=== PATIENT | female | born 1950 | race Hispanic/Latino ===

== ENCOUNTER 2019-04-02 18:35 | Observation (INO) | payer MEDICARE, OTHER ==
[~2019-04-02] VITALS: Ht 160 cm; Wt 82.8 kg
[~2019-04-02 18:35] MED LIST: AMIT25TA9 PO; CETI10TA57 PO; INS7030 SQ; METF-444 PO; SITA100T12 PO
[2019-04-02] MEDS ORDERED: SODIUM CHLORIDE 0.9% 500ML 500 ML IV ONE (19:41)
[2019-04-02 19:46] LABS: BASOPHILS % (AUTO) 0.5 % (0.0-5.0); EOSINOPHILS % (AUTO) 2.7 % (0.0-8.0); HEMATOCRIT 41.3 % (36-48); LYMPHOCYTES % (AUTO) 33.2 % (21.0-51.0); MEAN CORPUSCULAR HEMOGLOBIN 32.6 pg (27.0-33.0); MEAN CORPUSCULAR HGB CONC 35.1 g/dL (32.0-36.0); MEAN CORPUSCULAR VOLUME 93.1 fL (79-99); MONOCYTES % (AUTO) 5.5 % (3.0-13.0); NEUTROPHILS % (AUTO) 58.1 % (40.0-77.0); PLATELET COUNT (AUTO) 274 K/uL (130-400); RED BLOOD CELL COUNT(AUTO) 4.43 MIL/uL (4.00-5.50); RED CELL DISTRIBUTION WIDTH 13.1 % (11.0-15.5); WHITE BLOOD COUNT (AUTO) 11.2 K/uL (4.8-10.8)
[2019-04-02 19:58] LABS: APPEARANCE,URINE CLOUDY (CLEAR); BILIRUBIN,URINE SMALL (NEGATIVE); COLOR,URINE YELLOW (YELLOW); GLUCOSE, URINE (UA) >=1000 mg/dL (NEGATIVE); KETONES,URINE 15 mg/dL (NEGATIVE); LEUKOCYTE ESTERASE ,URINE TRACE (NEGATIVE); NITRATE,URINE POSITIVE (NEGATIVE); OCCULT BLOOD,URINE TRACE-INTACT (NEGATIVE); PH,URINE 5.5 (5.0-8.0); PROTEIN,URINE 100 mg/dL (NEGATIVE); UROBILINOGEN,URINE 0.2 mg/dL (0.2-1.0)
[2019-04-02 20:02] LABS: BACTERIA,URINE Many /HPF (None Seen); MUCUS,URINE Moderate LPF (None Seen)
[2019-04-02 20:10] LABS: B-TYPE NATRIURETIC PEPTIDE 71 pg/mL (0-100)
[2019-04-02 20:28] LABS: POTASSIUM 3.3 mmol/L (3.5-5.1)
[2019-04-02 20:33] LABS: ALBUMIN 3.8 g/dL (3.5-5.0); BILIRUBIN,DIRECT 0.1 mg/dL (0.0-0.3); BILIRUBIN,TOTAL 0.6 mg/dL (0.2-1.0); TOTAL PROTEIN, SERUM 7.9 g/dL (6.0-8.3)
[2019-04-02] MEDS ORDERED: ACETAMINOPHEN 325 MG TAB ONE (21:43)
[2019-04-02] MEDS ORDERED: ACETAMINOPHEN 325 MG TAB PO PRN (23:30)
[2019-04-02] MEDS ORDERED: SODIUM CHLORIDE 0.9% 1000ML 1,000 ML IV SCH (23:30)
[2019-04-02] MEDS ORDERED: KETOROLAC TROMETHAMINE 30MG/ML IV PRN (23:30)
[2019-04-02] MEDS ORDERED: POTASSIUM CHLORIDE 20MEQ/100ML 100 ML IV PRN (23:30)
[2019-04-02] MEDS ORDERED: LIDOCAINE HCL-MPF 1% 2ML VIAL IV PRN (23:30)
[2019-04-02] MEDS ORDERED: NITROGLYCERIN 0.4 MG SL TAB SL PRN (23:30)
[2019-04-02] MEDS ORDERED: CEFTRIAXONE SODIUM 1 GM ONE (23:51)
[2019-04-02] MEDS ORDERED: SODIUM CHLORIDE 0.9% 1000ML 1,000 ML IV ONE (23:52)
[2019-04-03 03:30] VITALS: BP 107/60
--- NOTE | 2019-04-03 03:55 | NUR ---
admission note admit to room 405 via w/c from er. patient awake, alert, ox3, no sob, no c/o pain at this time, teach patient plan of care and expected outcome, patient verbalizes understanding via teach back, call patterson at reach
[2019-04-03 05:26] LABS: BASOPHILS % (AUTO) 0.5 % (0.0-5.0); EOSINOPHILS % (AUTO) 4.2 % (0.0-8.0); HEMATOCRIT 35.5 % (36-48); LYMPHOCYTES % (AUTO) 48.3 % (21.0-51.0); MEAN CORPUSCULAR HEMOGLOBIN 32.3 pg (27.0-33.0); MEAN CORPUSCULAR HGB CONC 35.2 g/dL (32.0-36.0); MEAN CORPUSCULAR VOLUME 91.5 fL (79-99); MONOCYTES % (AUTO) 5.9 % (3.0-13.0); NEUTROPHILS % (AUTO) 41.1 % (40.0-77.0); NUCLEATED RED BLOOD CELLS 0.1 % (0.0-0.19); PLATELET COUNT (AUTO) 224 K/uL (130-400); RED BLOOD CELL COUNT(AUTO) 3.88 MIL/uL (4.00-5.50); RED CELL DISTRIBUTION WIDTH 13.2 % (11.0-15.5); WHITE BLOOD COUNT (AUTO) 8.7 K/uL (4.8-10.8)
[2019-04-03 05:41] LABS: ALBUMIN 2.9 g/dL (3.5-5.0); BILIRUBIN,TOTAL 0.4 mg/dL (0.2-1.0); CREATININE 0.7 mg/dL (0.5-1.5); MAGNESIUM 0.8 mg/dL (1.80-2.40); POTASSIUM 3.4 mmol/L (3.5-5.1); TOTAL PROTEIN, SERUM 6.3 g/dL (6.0-8.3)
[2019-04-03] MEDS ORDERED: INSULIN HUMULIN R 100 UNIT/ML 3ML SQ SCH (07:30)
[2019-04-03 07:55] VITALS: BP 104/50
[2019-04-03] MEDS: ASPIRIN 81MG TAB.CHEW PO SCH (09:58)
[2019-04-03] MEDS: ENOXAPARIN SODIUM 30 MG/0.3 ML SQ SCH (09:58)
[2019-04-03] MEDS: FAMOTIDINE/PF 20 MG/2 ML VIAL IV SCH ×2 (09:58→20:09)
[2019-04-03] MEDS: NS-20 MEQ KCL 1000ML 1,000 ML IV SCH ×2 (10:15→21:39)
[2019-04-03 11:06] VITALS: BP 147/77
[2019-04-03] MEDS: MAGNESIUM 2GM PREMIX 50ML 50 ML IV PRN (12:29)
[2019-04-03] MEDS: CEFTRIAXONE SODIUM 1 GM IVP SCH (12:29)
[2019-04-03 15:58] VITALS: BP 132/70
[2019-04-03 19:26] VITALS: BP 131/54
[2019-04-03] MEDS ORDERED: GLUCAGON 1MG KIT 1 MG ML IM PRN (20:30)
[2019-04-03] MEDS ORDERED: DEXTROSE 50%-WATER 50 ML DISP.SYRIN IV PRN (20:30)
[2019-04-03] MEDS ORDERED: ZOLPIDEM TARTRATE 5 MG TAB PO PRN (20:30)
[2019-04-03] MEDS ORDERED: INSULIN HUMULIN 70/30 100 UNIT/ML 3ML SQ SCH (21:00)
[2019-04-03] MEDS ORDERED: AMITRIPTYLINE HCL 25 MG TABLET PO SCH (21:00)
[2019-04-03] MEDS: INSULIN HUMULIN R 100 UNIT/ML 3ML SQ SCH (21:41)
[2019-04-03 23:33] VITALS: BP 149/69
[2019-04-04] MEDS: CEFTRIAXONE SODIUM 1 GM IVP SCH ×2 (00:07→11:54)
[2019-04-04 03:23] VITALS: BP 129/60
[2019-04-04 05:58] LABS: HEMATOCRIT 34.5 % (36-48); MEAN CORPUSCULAR HEMOGLOBIN 33.2 pg (27.0-33.0); MEAN CORPUSCULAR HGB CONC 35.9 g/dL (32.0-36.0); MEAN CORPUSCULAR VOLUME 92.6 fL (79-99); NUCLEATED RED BLOOD CELLS 0.1 % (0.0-0.19); PLATELET COUNT (AUTO) 216 K/uL (130-400); RED BLOOD CELL COUNT(AUTO) 3.73 MIL/uL (4.00-5.50); WHITE BLOOD COUNT (AUTO) 7.7 K/uL (4.8-10.8)
[2019-04-04 06:02] LABS: CREATININE 0.6 mg/dL (0.5-1.5); HEMOGLOBIN A1C 10.4 % (4.0-6.0); MAGNESIUM 1.6 mg/dL (1.80-2.40); POTASSIUM 3.6 mmol/L (3.5-5.1)
[2019-04-04] MEDS ORDERED: POTASSIUM CHLORIDE 20 MEQ ERTAB PO ONE (06:35)
[2019-04-04] MEDS: POTASSIUM CHLORIDE 20 MEQ ERTAB PO PRN ×2 (06:41→09:47)
[2019-04-04] MEDS: INSULIN HUMULIN R 100 UNIT/ML 3ML SQ SCH ×2 (06:42→12:12)
[2019-04-04] MEDS ORDERED: POTASSIUM CHLORIDE 10% ELIXIR 20 MEQ/15 ML UDCUP PO PRN (06:45)
[2019-04-04 07:50] VITALS: BP 124/55
[2019-04-04] MEDS ORDERED: CETIRIZINE HCL 5 MG TABLET PO SCH (09:00)
[2019-04-04] MEDS ORDERED: LINAGLIPTIN 5 MG TABLET PO SCH (09:00)
[2019-04-04] MEDS: FAMOTIDINE/PF 20 MG/2 ML VIAL IV SCH (09:47)
[2019-04-04] MEDS: ENOXAPARIN SODIUM 30 MG/0.3 ML SQ SCH (09:47)
[2019-04-04] MEDS: ASPIRIN 81MG TAB.CHEW PO SCH (09:47)
[2019-04-04 11:48] VITALS: BP 147/78
[2019-04-04] MEDS: MAGNESIUM 2GM PREMIX 50ML 50 ML IV PRN (11:54)
--- NOTE | 2019-04-04 13:53 | NUR ---
CHART REVIEWED, ADMITTED W/ CHEST PAIN, DOCUMENTED SECOND TO COSTOCHONDRITIS UTI- CULTURES PENDING, ELECTROLYTE IMBALANCE EXPECTING DISCHARGE TODAY Addendum: 04/04/19 at 1354 by ROBB VILLANUEVA RN CM Amended: Links added. Addendum: 04/04/19 at 1356 by ROBB VILLANUEVA RN CM WRONG PT CHART
[2019-04-04] MEDS ORDERED: CEPH-578 PO (15:52)
[2019-04-04 17:13] VITALS: BP 160/63
--- NOTE | 2019-04-04 17:39 | NUR ---
DISCHARGE PATIENT GIVEN DISCHARGE INSTRUCTIONS VIA TEACH BACK. 20G PIV TO LFA DISCONTINUED, TIP INTACT. TELE PACK REMOVED AND TAKEN TO TELEMETRY. RX CALLED INTO [facility]. KEFLEX 500MG1 CAP PO TID X 5 DAYS. PATIENT TO MAKE FOLLOW UP APPOINTMENT WITH DR. FRANCIS AT [facility]. PATIENT STABLE AT THIS TIME. PATIENT WHEELED TO LOBBY BY JENNIFER BEGUM.
== END 2019-04-04 17:43 | disposition home or self-care (01) ==
LOC: EDH 18:35 → EDHIP 23:35 → 4BH 04-03 02:48
PROVIDERS: ADMIT Family Medicine; ATTEND Family Medicine
DX: M94.0 Chondrocostal junction syndrome [Tietze] (principal); E11.65 Type 2 diabetes mellitus with hyperglycemia; I10 Essential (primary) hypertension; D72.829 Elevated white blood cell count, unspecified; E66.9 Obesity, unspecified; E78.5 Hyperlipidemia, unspecified; E83.42 Hypomagnesemia; E87.6 Hypokalemia; N28.9 Disorder of kidney and ureter, unspecified; Z68.32 Body mass index [BMI] 32.0-32.9, adult; Z82.49 Family history of ischemic heart disease and other diseases of the circulatory system; Z83.3 Family history of diabetes mellitus; Z79.899 Other long term (current) drug therapy
CPT/HCPCS: 36415 ×3; 70450; 71046; 80048 ×2; 80053; 80076; 81001; 82550; 82948 ×7; 83036; 83735 ×2; 83880; 84484 ×3; 85025 ×2; 85027; 93005 ×2; 96361; 96365; 96366 ×2; 96367; 96372 ×2; 96375; 96376 ×2; 99284; G0378 ×16; J0696 ×4; J1650 ×2; J1815 ×3; J3475 ×2; J3480 ×3; J3490 ×4; J7030; J7040

== ENCOUNTER 2019-05-08 12:20 | Emergency (ER) | payer MEDICARE ==
[~2019-05-08 12:20] MED LIST changes: +CEPH-578 PO
[2019-05-08] MEDS ORDERED: ASPIRIN 325 MG TABLET ONE (12:37)
[2019-05-08 12:39] LABS: BASOPHILS % (AUTO) 0.4 % (0.0-5.0); EOSINOPHILS % (AUTO) 2.8 % (0.0-8.0); HEMATOCRIT 41.6 % (36-48); LYMPHOCYTES % (AUTO) 15.3 % (21.0-51.0); MEAN CORPUSCULAR HGB CONC 34.8 g/dL (32.0-36.0); MEAN CORPUSCULAR VOLUME 91.9 fL (79-99); MONOCYTES % (AUTO) 3.8 % (3.0-13.0); NEUTROPHILS % (AUTO) 77.7 % (40.0-77.0); PLATELET COUNT (AUTO) 253 K/uL (130-400); RED BLOOD CELL COUNT(AUTO) 4.53 MIL/uL (4.00-5.50); RED CELL DISTRIBUTION WIDTH 12.3 % (11.0-15.5); WHITE BLOOD COUNT (AUTO) 9.6 K/uL (4.8-10.8)
[2019-05-08 12:55] LABS: CREATININE 0.7 mg/dL (0.5-1.5); POTASSIUM 3.8 mmol/L (3.5-5.1)
[2019-05-08 13:00] LABS: ALBUMIN 3.6 g/dL (3.5-5.0); BILIRUBIN,TOTAL 0.9 mg/dL (0.2-1.0); INR 1.01 (0.85-1.15); PARTIAL THROMBOPLASTIN TIME 25.5 SEC (26.3-35.5); PROTHROMBIN TIME 10.6 SEC (9.6-11.6); TOTAL PROTEIN, SERUM 7.6 g/dL (6.0-8.3)
[2019-05-08] MEDS ORDERED: DEXAMETHASONE SOD PHOSPHATE 10MG/ML 1ML VIAL ONE (13:03)
[2019-05-08] MEDS ORDERED: CEFTRIAXONE SODIUM 1 GM ONE (13:03)
[2019-05-08] MEDS ORDERED: SODIUM CHLORIDE 0.9% 500ML 500 ML IV ONE (13:04)
[2019-05-08] MEDS ORDERED: IPRATROPIUM/ALBUTEROL SULFATE 3 ML SOLUTION IH ONE (13:10)
[2019-05-08 13:54] LABS: B-TYPE NATRIURETIC PEPTIDE 23 pg/mL (0-100)
[2019-05-08] MEDS ORDERED: ACETAMINOPHEN 325 MG TAB ONE (16:24)
== END 2019-05-08 16:45 | disposition home or self-care (01) ==
LOC: EDH 12:20
DX: J20.9 Acute bronchitis, unspecified (principal); E78.5 Hyperlipidemia, unspecified; I10 Essential (primary) hypertension; E11.9 Type 2 diabetes mellitus without complications; F41.9 Anxiety disorder, unspecified
CPT/HCPCS: 36415; 71045; 80053; 82550; 83880; 84484 ×2; 85025; 85610; 85730; 87804 ×2; 93005; 94640; 96374; 96375; 99285; J0696; J1100; J7040

== ENCOUNTER 2020-12-31 20:21 | Emergency (ER) | payer MEDICARE, OTHER ==
[~2020-12-31] VITALS: Ht 160 cm; Wt 89.4 kg
[2020-12-31 20:27] VITALS: BP 134/66
[2020-12-31 21:30] LABS: BASOPHILS % (AUTO) 0.2 % (0.0-5.0); EOSINOPHILS % (AUTO) 1.2 % (0.0-8.0); HEMATOCRIT 38.9 % (36-48); LYMPHOCYTES % (AUTO) 41.5 % (21.0-51.0); MEAN CORPUSCULAR HGB CONC 35.7 g/dL (32.0-36.0); MEAN CORPUSCULAR VOLUME 89.6 fL (79-99); MONOCYTES % (AUTO) 4.6 % (3.0-13.0); NEUTROPHILS % (AUTO) 52.3 % (40.0-77.0); PLATELET COUNT (AUTO) 284 K/uL (130-400); RED BLOOD CELL COUNT(AUTO) 4.34 MIL/uL (4.00-5.50); RED CELL DISTRIBUTION WIDTH 12.9 % (11.0-15.5); WHITE BLOOD COUNT (AUTO) 9.4 K/uL (4.8-10.8)
[2020-12-31] MEDS ORDERED: 0.9%NACL 1000ML 1,000 ML IV ONE ×2 (21:30→22:01)
[2020-12-31 21:45] LABS: CREATININE 0.8 mg/dL (0.5-1.5); POTASSIUM 3.6 mmol/L (3.5-5.1)
[2020-12-31 21:49] LABS: ALBUMIN 3.4 g/dL (3.5-5.0); BILIRUBIN,TOTAL 0.4 mg/dL (0.2-1.0); TOTAL PROTEIN, SERUM 7.2 g/dL (6.0-8.3)
[2020-12-31] MEDS ORDERED: LIDOCAINE HCL 2% VISCOUS 15 ML UDCUP ONE (22:55)
[2020-12-31] MEDS ORDERED: MAG/ALUM/SIMETH 30 ML UDCUP ONE (22:55)
[2020-12-31] MEDS ORDERED: LORAZEPAM 2 MG/ML 1 ML VIAL ONE (23:19)
[2020-12-31] MEDS ORDERED: LORAZEPAM 2 MG/ML 1 ML VIAL IM ONE (23:30)
[2020-12-31 23:55] VITALS: BP 154/72
[2021-01-01 00:35] LABS: BILIRUBIN,URINE Negative (NEGATIVE); COLOR,URINE Yellow (YELLOW); GLUCOSE, URINE (UA) Negative (NEGATIVE); KETONES,URINE Negative (NEGATIVE); LEUKOCYTE ESTERASE ,URINE Trace (NEGATIVE); NITRATE,URINE Negative (NEGATIVE); OCCULT BLOOD,URINE Negative (NEGATIVE); PH,URINE 5.5 (5.0-8.0); PROTEIN,URINE Negative (NEGATIVE); UROBILINOGEN,URINE 0.2 mg/dL (0.2-1.0)
[2021-01-01 00:38] LABS: APPEARANCE,URINE CLEAR (CLEAR)
[2021-01-01 00:46] LABS: BACTERIA,URINE Rare /HPF (None Seen); RBC,URINE 0-1 /HPF (0-1)
[2021-01-01] MEDS ORDERED: HYD25 PO (01:25)
[2021-01-01] MEDS ORDERED: CEPH250C2 PO (01:27)
[2021-01-02] MEDS ORDERED: LOSA50TA64 PO (23:00)
[2021-01-02] MEDS ORDERED: IBUP-2077 PO (23:00)
== END 2021-01-01 01:43 | disposition home or self-care (01) ==
LOC: EDH 20:21
DX: N39.0 Urinary tract infection, site not specified (principal); F41.9 Anxiety disorder, unspecified; E11.9 Type 2 diabetes mellitus without complications; I10 Essential (primary) hypertension; E86.0 Dehydration; Z79.4 Long term (current) use of insulin; Z79.899 Other long term (current) drug therapy; Z90.49 Acquired absence of other specified parts of digestive tract; Z90.710 Acquired absence of both cervix and uterus
CPT/HCPCS: 36415; 80053; 81001; 84484; 85025; 93005; 96360; 96372; J2060; J7030

== ENCOUNTER 2021-01-02 20:22 | Emergency (ER) | payer MEDICARE ==
[~2021-01-02] VITALS: Ht 160 cm; Wt 83.9 kg
[~2021-01-02 20:22] MED LIST changes: +CEPH250C2 PO; +HYD25 PO
[2021-01-02 21:12] LABS: APPEARANCE,URINE Clear (CLEAR); BILIRUBIN,URINE Negative (NEGATIVE); COLOR,URINE Yellow (YELLOW); GLUCOSE, URINE (UA) 500 mg/dL (NEGATIVE); KETONES,URINE Negative (NEGATIVE); LEUKOCYTE ESTERASE ,URINE Negative (NEGATIVE); NITRATE,URINE Negative (NEGATIVE); OCCULT BLOOD,URINE Negative (NEGATIVE); PROTEIN,URINE Negative (NEGATIVE); UROBILINOGEN,URINE 0.2 mg/dL (0.2-1.0)
[2021-01-02 21:19] LABS: BACTERIA,URINE Rare /HPF (None Seen); RBC,URINE 0-1 /HPF (0-1); SQUAMOUS EPITHELIAL CELL,UR Rare /HPF (0-2); WBC,URINE 0-1 /HPF (0-1); YEAST,URINE BUDDING Rare /HPF (None Seen)
[2021-01-02] MEDS ORDERED: ONDANSETRON 4MG INJ IVP ONE (21:30)
[2021-01-02] MEDS ORDERED: MORPHINE 4 MG SYG IVP ONE (21:30)
[2021-01-02 22:32] LABS: BASOPHILS % (AUTO) 0.5 % (0.0-5.0); EOSINOPHILS % (AUTO) 3.1 % (0.0-8.0); HEMATOCRIT 40.8 % (36-48); LYMPHOCYTES % (AUTO) 43.9 % (21.0-51.0); MEAN CORPUSCULAR HEMOGLOBIN 31.9 pg (27.0-33.0); MEAN CORPUSCULAR VOLUME 88.5 fL (79-99); MONOCYTES % (AUTO) 5.3 % (3.0-13.0); PLATELET COUNT (AUTO) 268 K/uL (130-400); RED BLOOD CELL COUNT(AUTO) 4.61 MIL/uL (4.00-5.50); RED CELL DISTRIBUTION WIDTH 12.6 % (11.0-15.5); WHITE BLOOD COUNT (AUTO) 8.4 K/uL (4.8-10.8)
[2021-01-02 22:33] VITALS: BP 156/78
[2021-01-02] MEDS ORDERED: IBUP-2077 PO (23:00)
[2021-01-02] MEDS ORDERED: LOSA50TA64 PO (23:00)
[2021-01-02 23:30] LABS: CREATININE 0.8 mg/dL (0.5-1.5)
[2021-01-02 23:34] LABS: ALBUMIN 3.5 g/dL (3.5-5.0); BILIRUBIN,TOTAL 0.5 mg/dL (0.2-1.0); TOTAL PROTEIN, SERUM 7.3 g/dL (6.0-8.3)
[2021-01-03] MEDS ORDERED: HYOSCYAMINE SULFATE 0.125 MG TAB.SUBL SL ONE ×2 (00:23)
[2021-01-03] MEDS ORDERED: HYOS0.124 SL (01:26)
== END 2021-01-03 02:14 | disposition home or self-care (01) ==
LOC: EDH 20:22
DX: R10.32 Left lower quadrant pain (principal); R05 Cough; E11.9 Type 2 diabetes mellitus without complications; E78.00 Pure hypercholesterolemia, unspecified; F32.9 Major depressive disorder, single episode, unspecified; I10 Essential (primary) hypertension; F41.9 Anxiety disorder, unspecified; J45.909 Unspecified asthma, uncomplicated; Z79.4 Long term (current) use of insulin; Z79.899 Other long term (current) drug therapy; Z79.1 Long term (current) use of non-steroidal anti-inflammatories (NSAID)
CPT/HCPCS: 36415; 74176; 80053; 81001; 82550; 83690; 84484 ×2; 85025; 93005 ×2; 96374; 96375; 99285; J2270; J2405

== ENCOUNTER 2022-03-11 12:42 | Emergency (ER) | payer OTHER ==
[~2022-03-11] VITALS: Ht 152.4 cm; Wt 77.1 kg
[~2022-03-11 12:42] MED LIST changes: +HYOS0.124 SL; +IBUP-2077 PO; +LOSA50TA64 PO
[2022-03-11 13:12] LABS: BASOPHILS % (AUTO) 0.5 % (0.0-5.0); EOSINOPHILS % (AUTO) 2.5 % (0.0-8.0); LYMPHOCYTES % (AUTO) 39.9 % (21.0-51.0); MEAN CORPUSCULAR HGB CONC 36.8 g/dL (32.0-36.0); MONOCYTES % (AUTO) 6.1 % (3.0-13.0); NEUTROPHILS % (AUTO) 50.7 % (40.0-77.0); PLATELET COUNT (AUTO) 275 K/uL (130-400); RED CELL DISTRIBUTION WIDTH 12.9 % (11.0-15.5); WHITE BLOOD COUNT (AUTO) 10.1 K/uL (4.8-10.8)
[2022-03-11] MEDS ORDERED: DIAZEPAM 5 MG/ML 2 ML SYG IVP ONE (13:30)
[2022-03-11 13:35] LABS: B-TYPE NATRIURETIC PEPTIDE 29 pg/mL (0-100)
[2022-03-11 13:47] LABS: POTASSIUM 3.7 mmol/L (3.5-5.1); TOTAL PROTEIN, SERUM 7.1 g/dL (6.0-8.3)
[2022-03-11] MEDS ORDERED: HYDR25CA PO (14:20)
[2022-03-11 14:35] VITALS: BP 116/64
== END 2022-03-11 14:34 | disposition home or self-care (01) ==
LOC: EDH 12:42
DX: F41.9 Anxiety disorder, unspecified (principal); R06.4 Hyperventilation; J45.909 Unspecified asthma, uncomplicated; F32.A Depression, unspecified; E11.9 Type 2 diabetes mellitus without complications; E78.00 Pure hypercholesterolemia, unspecified; I10 Essential (primary) hypertension; Z98.890 Other specified postprocedural states; Z90.49 Acquired absence of other specified parts of digestive tract; Z79.899 Other long term (current) drug therapy; Z79.84 Long term (current) use of oral hypoglycemic drugs; Z79.4 Long term (current) use of insulin
CPT/HCPCS: 99285; 96374; 71045; 84484; 80053; 83880; 85025; 36415; 93005; J3360

== ENCOUNTER → 2023-04-30 | Outpatient (CLI) | payer OTHER ==
[~2023-04-30] MED LIST changes: +HYDR25CA PO
[2023-04-30 11:47] LABS: BASOPHILS # (AUTO) 0.04 K/uL (0.00-0.20); BASOPHILS % (AUTO) 0.4 % (0.0-5.0); EOSINOPHILS # (AUTO) 0.16 K/uL (0.00-0.70); EOSINOPHILS % (AUTO) 1.8 % (0.0-8.0); IMMATURE GRANULOCYTE ABSOLUTE 0.03 K/uL (0-1); LYMPHOCYTES # (AUTO) 2.9 K/uL (1.0-4.8); LYMPHOCYTES % (AUTO) 31.6 % (21.0-51.0); MEAN CORPUSCULAR HEMOGLOBIN 32.1 pg (27.0-33.0); MEAN CORPUSCULAR HGB CONC 35.1 g/dL (32.0-36.0); MEAN CORPUSCULAR VOLUME 91.3 fL (79-99); MONOCYTES # (AUTO) 0.4 K/uL (0.1-1.0); MONOCYTES % (AUTO) 4.3 % (3.0-13.0); NEUTROPHILS # (AUTO) 5.6 K/uL (1.8-7.7); NEUTROPHILS % (AUTO) 61.6 % (40.0-77.0); PLATELET COUNT (AUTO) 273 K/uL (130-400); RED BLOOD CELL COUNT(AUTO) 4.27 MIL/uL (4.00-5.50); RED CELL DISTRIBUTION WIDTH 13.2 % (11.0-15.5); WHITE BLOOD COUNT (AUTO) 9.1 K/uL (4.8-10.8)
[2023-04-30 12:16] LABS: ALBUMIN 3.4 g/dL (3.5-5.0); BILIRUBIN,DIRECT 0.2 mg/dL (0.0-0.3); BILIRUBIN,TOTAL 0.6 mg/dL (0.2-1.0); CREATININE 0.8 mg/dL (0.5-1.5); POTASSIUM 3.9 mmol/L (3.5-5.1); THYROID STIMULATING HORMONE 1.76 uIU/mL (0.36-3.74); TOTAL PROTEIN, SERUM 7.3 g/dL (6.0-8.3)
== END | disposition home or self-care (01) ==
LOC: LAB 10:56
PROVIDERS: ATTEND Internal Medicine Cardiovascular Disease
DX: I10 Essential (primary) hypertension (principal); R06.02 Shortness of breath; R73.09 Other abnormal glucose; I25.9 Chronic ischemic heart disease, unspecified
CPT/HCPCS: 36415; 80048; 80061; 80076; 83036; 84443; 85025